=== PATIENT | male | born 1965 | race African-American/Black ===

== ENCOUNTER 2021-01-22 01:26 | Emergency (ER) | payer OTHER ==
[~2021-01-22] VITALS: Ht 170.2 cm; Wt 75.7 kg
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
[2021-01-22] MEDS ORDERED: FLUORESCEIN SODIUM OPHTH 1 EA STRIP OP ONE (02:30)
[2021-01-22] MEDS ORDERED: FLUORESCEIN SODIUM OPHTH 1 EA STRIP ONE (02:30)
[2021-01-22] MEDS ORDERED: LIDOCAINE 1%-EPI 1:100,000 20 ML VIAL TP ONE (03:00)
[2021-01-22] MEDS ORDERED: NAPR-1192 PO (03:28)
[2021-01-22] MEDS ORDERED: IBUPROFEN 400 MG TABLET PO ONE (03:30)
[2021-01-22] MEDS ORDERED: IBUPROFEN 400 MG TABLET ONE (03:34)
--- NOTE | 2021-01-22 03:48 | NUR ---
Patient discharged to home in stable condition. Written and verbal after care instructions given. Patient verbalizes understanding of instruction and rx. Pt ambulated out of ED. VSS.
[2021-01-22 03:49] VITALS: BP 138/76
== END 2021-01-22 03:49 | disposition home or self-care (01) ==
LOC: ER 01:29
DX: S02.31XA Fracture of orbital floor, right side, initial encounter for closed fracture (principal); S06.0X0A Concussion without loss of consciousness, initial encounter; S01.511A Laceration without foreign body of lip, initial encounter; M25.562 Pain in left knee; Z88.0 Allergy status to penicillin; Y08.89XA Assault by other specified means, initial encounter; Y93.89 Activity, other specified; Y92.830 Public park as the place of occurrence of the external cause; Y99.8 Other external cause status
CPT/HCPCS: 73564-TC

== ENCOUNTER 2022-12-08 10:24 | Emergency (ER) | payer BC ==
[~2022-12-08] VITALS: Ht 167.6 cm; Wt 74.8 kg
[~2022-12-08 10:24] MED LIST: NAPR-1192 PO
--- NOTE | 2022-12-08 11:14 | NUR ---
PT TAKEN TO CT
[2022-12-08] MEDS ORDERED: CYCL5TAB PO (12:10)
[2022-12-08] MEDS ORDERED: IBUP-1955 PO (12:10)
[2022-12-08 12:47] VITALS: BP 140/98
--- NOTE | 2022-12-08 12:49 | NUR ---
CERVICAL COLLAR DISCONTINUED. PT WAS UP AND ABOUT NOT IN DISTRESS. AMBULATORY. WAS DISCHARGED
== END 2022-12-08 12:53 | disposition home or self-care (01) ==
LOC: ER 10:31
DX: S16.1XXA Strain of muscle, fascia and tendon at neck level, initial encounter (principal); F17.200 Nicotine dependence, unspecified, uncomplicated; Z88.0 Allergy status to penicillin; V89.2XXA Person injured in unspecified motor-vehicle accident, traffic, initial encounter; Y93.89 Activity, other specified; Y92.89 Other specified places as the place of occurrence of the external cause; Y99.8 Other external cause status
CPT/HCPCS: 72125-TC